=== PATIENT | female | born 1980 | race Caucasian/White ===

== ENCOUNTER 2017-04-28 11:19 | Emergency (ER) | payer SELFPAY ==
[~2017-04-28] VITALS: Wt 68.0 kg
[~2017-04-28 11:19] MED LIST: ACYCLOVIR800 MG PO; CELEXA20 MG PO; CLARITIN10 MG PO; FLAGYL500 MG PO; HYDROXYZINE PAM50 MG PO; IBU800 M1 PO; MEDROL DOSEPAK4 MG PO; VIBRA-TAB100 MG PO; XANAX0.5 MG PO; ZITHROMAX Z PA250 MG PO
[2017-04-28 11:24] VITALS: BP 122/95
[2017-04-28 12:40] LABS: HEMATOCRIT 39.4 % (37.0-47.0); MEAN CELL VOLUME 83.1 fl (81.0-99.0); MEAN CORPUSCULAR HGB 29.5 pg (27.0-31.0); MEAN CORPUSCULAR HGB CONC 35.5 g/dl (33.0-37.0); MEAN PLATELET VOLUME 11.1 fl (9.6-12.3); PLATELET COUNT AUTOMATED 148 10*3/uL (130-400); RED BLOOD COUNT 4.74 10*6/uL (4.10-5.10); RED CELL DISTRI WIDTH 13.5 % (0-14.5); WHITE BLOOD COUNT 15.4 10*3/uL (4.8-10.8)
[2017-04-28 12:55] LABS: ALKALINE PHOSPHATASE 360 U/L (45-117); BUN 8 mg/dl (7-24); CHLORIDE 102 mmol/L (98-107); POTASSIUM 3.8 mmol/L (3.5-5.1); SGOT/AST 285 IU/L (3-35); SGPT/ALT 505 U/L (12-78); SODIUM 136 mmol/L (136-145); TOTAL PROTEIN 6.8 gm/dL (6.4-8.2)
[2017-04-28 13:08] LABS: ATYPICAL LYMPHS 18 % (0-0); TOTAL CELLS COUNTED 100 #CELLS
[2017-04-28 13:09] LABS: PLATELET SUFFICIENCY NORMAL (NORMAL)
[2017-04-28 13:53] LABS: LIPASE 180 U/L (73-393)
[2017-04-28] MEDS ORDERED: ZOFRAN ODT4 MG SL (15:59)
== END 2017-04-28 16:14 | disposition home or self-care (01) ==
LOC: ED 11:19
PROVIDERS: Physician Assistant
DX: B27.90 Infectious mononucleosis, unspecified without complication (principal); R94.5 Abnormal results of liver function studies; F17.210 Nicotine dependence, cigarettes, uncomplicated; Z88.5 Allergy status to narcotic agent; Z90.89 Acquired absence of other organs